=== PATIENT | female | born 1940 | race Caucasian/White ===

== ENCOUNTER 2019-01-20 14:08 | Inpatient (IN) | payer OTHER, SELFPAY ==
[2019-01-20] VITALS (19 sets, daily range): BP systolic 117–160; BP diastolic 47–113; PULSE 99–157; RESP 17–26; TEMP 36.4–36.9; O2SAT 94–98; BMI 31.7; BMI 34.4
--- NOTE | 2019-01-20 | DI.ECHO.S_ITS ---
[facility] +---------+ : : [address] : : : : [id number] : : : : Phone: [phone] Echocardiogram Report + + :Name: CRISTOPHER BOB Study Date: 01/21/2019 Height: 64 in : :[facility] Exam Location: [facility] Weight: 185 lb : : Gender: Female BSA: 1.9 m2 : :: 1940 Age: 78 yrs BP: 107/61 mmHg: :Reason For Study: New A- fib : :Ordering Physician: Mallorie : :Hospitalist Performed By: Dafne Page : :Referring: Landon MORRISSEY E : + + Interpretation Summary The patient was in atrial fibrillation with heart rates between 71-100 bpm during the exam. Borderline dilated left ventricle with ejection fraction 40-45%. Hypokinesis of inferior wall and lateral wall. Severely dilated left atrium. Mild to moderately dilated right atrium. Moderate mitral regurgitation. The right ventricular systolic pressure is estimated to be at least 36 mmHg based on an estimated right atrial pressure of 15 mm Hg. There is a moderate left-sided pleural effusion. Procedure: A two-dimensional transthoracic echocardiogram with color flow and Doppler was performed. The study quality was technically adequate. There is no prior echocardiogram noted for this patient. The subcostal views were difficult to obtain and are suboptimal in quality. The patient was in atrial fibrillation with heart rates between 71-100 bpm during the exam. Left Ventricle: The left ventricle is borderline dilated. There is normal left ventricular wall thickness. The ejection fraction is estimated to be 40- 45%. There is inferior wall hypokinesis. Diastolic function could not be accurately assessed due to atrial fibrillation. Right Ventricle: The right ventricle is normal in size and function. Atria: The left atrium is severely dilated. The right atrium is mild to moderately dilated. There is no Doppler evidence for an interatrial shunt. Mitral Valve: The mitral valve leaflets appear mildly thickened, but open well. There is moderate mitral regurgitation. Aortic Valve: The aortic valve is trileaflet. The aortic valve opens well. The aortic valve is slightly calcified. There is mild aortic valve sclerosis. No aortic regurgitation is present. Tricuspid Valve: The tricuspid valve is normal in structure and function. There is trace tricuspid regurgitation. The right ventricular systolic pressure is estimated to be at least 36 mmHg based on an estimated right atrial pressure of 15 mm Hg. Pulmonic Valve: The pulmonic valve is not well visualized. There is trace pulmonic regurgitation. Great Vessels: The aortic root is normal size. The ascending aorta is normal in size. The aortic arch is normal in size. The pulmonary artery is not well visualized, but is probably normal size. The IVC is dilated (diameter is greater than 2.1 cm) and it collapses less than 50% with a sniff. This suggests a high right atrial pressure of 15 mm Hg. Pericardium/ Pleura There is no pericardial effusion. There is a moderate left-sided pleural effusion. MMode/2D Measurements & Calculations LVIDd: 5.4 cm Ao root diam: 2.8 cm LVIDs: 5.1 cm asc Aorta Diam: 3.0 cm FS: 6.6 % Ao Arch Diam (Prox Trans): 2.5 cm EPSS: 1.2 cm IVSd: 0.60 cm LVPWd: 1.0 cm LV judd. diameter/BSA (cm/m^2): 2.9 LV sys. diameter/BSA (cm/m^2): 2.7 LA A2 area: 29.5 cm2 RA long axis: 5.2 cm LA A4 area: 27.1 cm2 RA area: 21.3 cm2 LA length (vol): 6.6 cm RA vol: 74.4 ml LA vol: 102.8 ml RA : 39.3 ml/m2 LA vol index: 54.3 ml/m2 IVC diam: 2.5 cm RVD1 (basal): 3.7 cm TAPSE: 1.7 cm Doppler Measurements & Calculations Ao V2 max: 115.2 cm/sec LVOT Max Gino: 59.2 cm/sec Ao V2 mean: 84.6 cm/sec LV V1 max P.4 mmHg Ao max P.3 mmHg LV V1 VTI: 9.6 cm Ao mean P.1 mmHg sev ratio: 0.48 Ao V2 VTI: 20.1 cm MV E max gino: 80.1 cm/sec TR max gino: 228.5 cm/sec Med Peak E' Gino: 5.7 cm/sec TR max P.9 mmHg E/E' med: 14.0 PA V2 max: 61.9 cm/sec Lat Peak E' Gino: 6.9 cm/sec PA V2 mean: 42.5 cm/sec E/E' lat: 11.6 PA mean P.81 mmHg E/e' average: 12.8 PA Accel Time: 0.08 sec MV P1/2t: 46.9 msec MV P1/2t max gino: 81.0 cm/sec MVA(2t): 4.7 cm2 Electronically signed by: Malachi Santos on Reading Physician:01/21/2019 02:11 PM
--- NOTE | 2019-01-20 14:30 | DI.RAD.S_ITS ---
PROCEDURE: XR CHEST 1V INDICATIONS: chest pain TECHNIQUE: One view of the chest was acquired. COMPARISON: None. FINDINGS: Surgical changes and devices: None. Lungs and pleura: Diffuse bilateral reticular opacities are noted. There are left basilar pulmonary opacities. There is blunting of the left costophrenic angle consistent with a small left pleural effusion. There is prominence of the pulmonary vasculature bilaterally. Mediastinum: Mediastinal contours appear normal. Heart size is normal. Bones and chest wall: Mild degenerative changes of the bilateral chromic clavicular joint is noted. IMPRESSION: Findings most consistent with mild pulmonary edema with a small left pleural effusion and adjacent left basilar atelectasis; underlying left basilar pneumonia could appear similar. Dictated by: Shin Nova M.D. on 01/20/2019 at 16:59 Approved by: Shin Nova M.D. on 01/20/2019 at 17:00
[2019-01-20 14:39] LABS: Add Manual Diff / Slide Review NO; Basophils Absolute Auto 0 /uL (0-100); Basophils Percent Auto 0.6 % (0-2); Eosinophils Absolute Auto 100 /uL (0-450); Eosinophils Percent Auto 0.7 % (2-4); Hemoglobin 13.5 g/dL (12.0-16.0); Lymphocytes Absolute Auto 1500 /uL (1100-4500); Lymphocytes Percent Auto 18.9 % (25-40); Mean Corpuscular HGB Conc 32.9 % (30-36); Mean Corpuscular Hemoglobin 34.1 PG (26-34); Mean Corpuscular Volume 103.7 fL (80-100); Monocytes Absolute Auto 600 /uL (0-900); Monocytes Percent Auto 8.2 % (3-14); Neutrophils Absolute Auto 5600 /uL (1500-7000); Neutrophils Percent Auto 71.6 % (50-75); Platelet Count 276 X10^3/uL (150-400); Red Blood Cell Count 3.96 X10^6/uL (4.0-5.2); Red Cell Distribution Width 13.3 % (11.6-14.8); White Blood Cell Count 7.8 X10^3/uL (4.5-11.0)
[2019-01-20] MEDS: dilTIAZem 5 MG/ML SDV 10 MG IV (14:42)
[2019-01-20 14:45] LABS: Alanine Aminotransferase 46 IU/L (9-52); Albumin 4.5 g/dL (3.5-5.0); Albumin Globulin Ratio 1.5 (1.0-2.8); Alkaline Phosphatase 73 U/L (38-126); Aspartate Aminotransferase 33 IU/L (14-36); Bilirubin Total 0.6 mg/dL (0.2-1.3); Blood Urea Nitrogen 20 mg/dL (7-17); Calcium 9.5 mg/dL (8.4-10.2); Carbon Dioxide 21 mmol/L (22-32); Chloride 109 mmol/L (98-107); Creatine Kinase 95 U/L (30-135); Estimated Glomerular Filt Rate > 60.0 mL/min (>60); Glucose 106 mg/dL (80-110); HEMOLYSIS 31 (0-50); Lipase 46 U/L (23-300); Potassium 4.3 mmol/L (3.4-5.1); Sodium 141 mmol/L (137-145); Total Protein 7.5 g/dL (6.3-8.2)
[2019-01-20] MEDS: dilTIAZem 125 MG in DEXTROSE 5 % IN WATER 100 ML IV (14:49)
[2019-01-20 14:57] LABS: Troponin I 0.031 ng/mL (0.01-0.034)
[2019-01-20 15:02] LABS: INR 1.1 (0.9-1.3); Prothrombin Time 13.2 SECONDS (10.1-12.7)
[2019-01-20 15:05] LABS: PTT Partial Thromboplastin Tim 26 SECONDS (26.4-36.2)
[2019-01-20 15:05] LABS: B Type Natriuretic Peptide 272 (<100)
[2019-01-20] MEDS: ENOXAPARIN 40 MG/0.4 ML SYRINGE SUBCUT (15:10)
--- NOTE | 2019-01-20 15:11 | ED_ITS ---
HPI - SOB/Dyspnea General Chief Complaint: Shortness of Breath/Dyspnea Stated Complaint: short of breath Time Seen by Provider: 01/20/19 14:10 Source: patient and family Mode of arrival: ambulatory Limitations: no limitations History of Present Illness 78-year-old female nonsmoker with history of AFib (use no anticoagulation) presents with 5 days progressive shortness of breath and weakness. She denies any chest pain or palpitations. She denies any new or missed medications. She denies any dietary change. She has never had any EKGs done locally. She denies any cough nor fever or chills MD Complaint: shortness of breath Onset (ago): day(s) Severity: moderate Consistency/Duration: constant Relieving factors: rest Exacerbating factors: nothing Treatment prior to arrival: none Related Data Home Medications Medication Instructions Recorded Confirmed No Known Home Medications 01/20/19 01/20/19 Allergies Allergy/AdvReac Type Severity Reaction Status Date / Time No Known Drug Allergies Allergy Verified 01/20/19 15:05 Review of Systems Constitutional Denies chills, Denies fever(s), Denies lethargy and Denies weakness Eyes Denies change in vision, Denies eye discharge, Denies irritation and Denies loss of vision ENT Ears, Nose, Mouth, and Throat: Denies change in voice, Denies neck pain and Denies sore throat Cardiovascular Denies chest pain, Denies irregular heart rhythm, Denies lightheadedness, Denies palpitations, Reports dyspnea, Reports dyspnea on exertion and Denies orthopnea Respiratory Denies cough, Reports dyspnea, Reports dyspnea on exertion and Denies wheezing Gastrointestinal Gastrointestinal: Denies abdominal pain, Denies change in bowel habits, Denies diarrhea, Denies nausea and Denies vomiting Genitourinary Denies hematuria, Denies flank pain, Denies urinary incontinence and Denies urinary urgency Musculoskeletal Denies neck pain Integumentary/Breasts Denies pruritus, Denies erythema, Denies rash and Denies wounds Neurologic Denies confusion, Denies loss of vision and Denies weakness Psychiatric Denies anxiety, Denies confusion, Denies depression, Denies homicidal ideation and Denies suicidal ideation Endocrine Denies palpitations Hematologic/Lymphatic Denies easy bruising Allergic/Immunologic Denies wheezing [facility] Medical History (Updated 01/20/19 @ 15:14 by Mario Cerna DO) Atrial fibrillation (Acute) Social History Smoking Status: Never smoker Social History Smoking Status: Never smoker Exam Narrative Exam Narrative: GENERAL: Very pleasant 78-year-old female appears younger than stated age and in mild distress HEAD: Atraumatic. Normocephalic. No temporal or scalp tenderness. EYES: Pupils equal round and reactive. Extraocular motions intact. No scleral icterus. No injection or drainage. ENT: Nose without bleeding, purulent drainage or septal hematoma. Throat without erythema, tonsillar hypertrophy or exudate. Uvula midline. Airway patent. NECK: Trachea midline. No JVD or lymphadenopathy. Supple, nontender, no meningeal signs. CARDIOVASCULAR: Tachycardic and irregular rhythm without murmurs, gallops, or rubs. RESPIRATORY: Clear to auscultation. Breath sounds equal bilaterally. No wheezes, rales, or rhonchi. GASTROINTESTINAL: Abdomen soft, non-tender, nondistended. No hepato- splenomegaly, or palpable masses. No guarding. EXTREMITIES: No clubbing, cyanosis, or edema. No joint tenderness, effusion, or edema noted. BACK: Nontender without deformity or crepitance. No flank tenderness. NEURO: AOx3. SKIN: No rash or erythema. Initial Vital Signs Initial Vital Signs: Vital Signs Temperature 98.5 F 01/20/19 14:20 Pulse Rate 146 H 01/20/19 14:20 Respiratory Rate 24 01/20/19 14:20 Blood Pressure 153/90 H 01/20/19 14:20 Pulse Oximetry 96 01/20/19 14:20 Course Orders Ordered: ED Orders 01/20/19 14:15 EKG-12 Lead Routine 01/20/19 14:26 BNP [B Type Natriuretic Peptide] Stat Complete Blood Count AUTO DIFF Stat Comprehensive Metabolic Panel Stat Lipase Stat Magnesium Stat Troponin & CK Cardiac Panel Stat 01/20/19 14:30 XR chest 1V Stat 01/20/19 14:50 Partial Thromboplastin Time Stat Prothrombin Time INR Stat Diltiazem HCl 125 mg/ Dextrose 125 mls @ 5 mls/hr IV TITRATE ROSALINA; Protocol Last Admin: 01/20/19 14:49 Dose: 5 mg/hr, 5 mls/hr Discontinued Medications Diltiazem HCl (Cardizem) 10 mg IV NOW ONE Stop: 01/20/19 14:32 Last Admin: 01/20/19 14:42 Dose: 10 mg Enoxaparin Sodium (Lovenox) 40 mg SUBCUT NOW ONE Stop: 01/20/19 15:05 Reevaluation(s) Reevaluation #1: patient has brief improvement after diltiazem push and more gradual improvement after drip Consultations Consultation #1: discussion with hospitalist, happy to accept Vital Signs - 8 hr 01/20/19 14:20 01/20/19 14:42 01/20/19 14:43 Temperature 98.5 F Pulse Rate 146 H 157 H 127 H Respiratory Rate 24 21 Blood Pressure 153/90 H 142/113 H Blood Pressure [Right Arm] 137/90 Pulse Oximetry 96 97 01/20/19 14:49 01/20/19 14:54 01/20/19 15:05 Temperature Pulse Rate 122 H 115 H 99 H Respiratory Rate 17 24 Blood Pressure 154/110 H Blood Pressure [Right Arm] 154/100 H 126/85 Pulse Oximetry 94 95 MDM - SOB/Dyspnea Lab Data Result diagrams: 01/20/19 14:26 01/20/19 14:26 Lab Results 01/20/19 01/20/19 01/20/19 Range/Units 14:26 14:26 14:50 WBC 7.8 (4.5-11.0) X10^3/uL RBC 3.96 L (4.0-5.2) X10^6/uL Hgb 13.5 (12.0-16.0) g/dL Hct 41.0 (36-46) % MCV 103.7 H (80-100) fL MCH 34.1 H (26-34) PG MCHC 32.9 (30-36) % RDW 13.3 (11.6-14.8) % Plt Count 276 (150-400) X10^3/uL Neut % (Auto) 71.6 (50-75) % Lymph % (Auto) 18.9 L (25-40) % Lee % (Auto) 8.2 (3-14) % Eos % (Auto) 0.7 L (2-4) % Baso % (Auto) 0.6 (0-2) % Neut # (Auto) 5600 (7022-1114) /uL Lymph # (Auto) 1500 (5130-8168) /uL Lee # (Auto) 600 (0-900) /uL Eos # (Auto) 100 (0-450) /uL Baso # (Auto) 0 (0-100) /uL PT 13.2 H (10.1-12.7) SECONDS INR 1.1 (0.9-1.3) APTT 26 L (26.4-36.2) SECONDS Sodium 141 (137-145) mmol/L Potassium 4.3 (3.4-5.1) mmol/L Chloride 109 H (98-107) mmol/L Carbon Dioxide 21 L (22-32) mmol/L BUN 20 H (7-17) mg/dL Creatinine 0.80 (0.52-1.04) mg/dL Estimated GFR > 60.0 (>60) mL/min BUN/Creatinine Ratio 25.0 H (6-22) Glucose 106 (80-110) mg/dL Calcium 9.5 (8.4-10.2) mg/dL Magnesium 2.0 (1.6-2.3) mg/dL Total Bilirubin 0.6 (0.2-1.3) mg/dL AST 33 (14-36) IU/L ALT 46 (9-52) IU/L Alkaline Phosphatase 73 (38-126) U/L Total Creatine Kinase 95 (30-135) U/L CK-MB (CK-2) TNP CK-MB (CK-2) Rel Index TNP Troponin I 0.031 (0.01-0.034) ng/mL B-Natriuretic Peptide 272 H (<100) Total Protein 7.5 (6.3-8.2) g/dL Albumin 4.5 (3.5-5.0) g/dL Globulin 3.0 (1.7-4.1) g/dL Albumin/Globulin Ratio 1.5 (1.0-2.8) Lipase 46 (23-300) U/L ECG Data Attestation: I personally reviewed and interpreted this ECG as follows: Prior ECG tracings: not available for review Interpretation: Rapid AFib, in the upper 140s without ischemia MDM Narrative Medical decision making narrative: symptomatic rapid atrial fib, no clear time of onset though it would seem reasonable to suspect it's been about 5 days. Furthermore she is not anticoagulated and is therefore not a candidate for cardioversion in the emergency department Discharge Plan Departure Patient Disposition: Admitted As Inpatient Clinical Impression: Atrial fibrillation with rapid ventricular response
--- NOTE | 2019-01-20 16:35 | P.HP_ITS ---
History of Present Illness Date Patient Seen: 01/20/19 Time Patient Seen: 16:29 Chief complaint: short of breath Narrative: This is a 78-year-old female who has had intermittent palpitations for the last 20 years. She insists that she has told her physician about them and that no testing or treatment was ever recommended. She admits that she has had hypertension but it has been ?controlled by diet and exercise. For the last week the palpitations have become more intense. They usually improve as the day goes on. Today was different because her sister and her niece were picking her up to drive up to visit her brother on [facility]. 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 On arrival she is found to have atrial fibrillation with rapid ventricular response up into the 168 range. Her chest x-ray appears to show mild pulmonary edema with significant cardiomegaly. She is on a Cardizem drip now with a heart rate back down into the 120s. Thyroid testing and echocardiogram will be needed. She has been started on anticoagulation. She drinks 3 glasses of wine per night and has done that for many years. She insists that she has never had withdrawal symptoms when needing to stop drinking for what ever reason. Her medical history is quite abbreviated. She only takes ibuprofen and only intermittently. She lives alone in her house in [place]. Dr. Alicia Duarte is her primary care physician on [address]. Patient History Medical History (Updated 01/20/19 @ 16:21 by Landon Morrow MD) Alcohol use (Acute) Essential hypertension (Acute) Atrial fibrillation (Acute) Surgical History (Updated 01/20/19 @ 16:23 by Landon Morrow MD) H/O umbilical hernia repair (Acute) History of knee replacement procedure of right knee (Acute) Family History (Updated 01/20/19 @ 16:24 by Landon Morrow MD) Father Cancer Mother Hip fracture Social History Smoking Status: Never smoker Family & Social History Family History (Updated 01/20/19 @ 16:24 by Landon Morrow MD) Father Cancer Mother Hip fracture Safety & Behavioral: Feels Safe in Current Yes Environment Tobacco & Substance use: Smoking Status Never smoker alcohol intake frequency 3 or more drinks per day Substance Use Type does not use Comment: She lives alone, with a cat, in her house, for the last [address] [place]. Alicia Duarte is her primary care physician at [facility] on [address]. She has not been there for 3 years. She drinks 3 glasses of wine per night and is distinctly irritable when that is discussed. She insists that she has never had withdrawal symptoms and is able to stop drinking for any period of time without trouble. No smoking, no THC, no drugs. She has 2 adult children and her son will be coming up to get her when she discharges. She worked only briefly, in the [employer] business. Meds Home Medications Medication Instructions Recorded Confirmed Type No Known Home Medications 01/20/19 01/20/19 History Allergies Allergy/AdvReac Type Severity Reaction Status Date / Time No Known Drug Allergies Allergy Verified 01/20/19 15:05 Review of Systems Review of Systems Positive for palpitations and dyspnea with exertion. Negative for bleeding, rashes, chest pain, shortness of breath at rest, coughing, fevers, chills, sweats, abdominal pain, vomiting, diarrhea, dysuria, joint pain, rash, seizures, headaches, trouble talking, trouble walking, new allergies. All systems reviewed & are unremarkable except as noted in HPI and below Exam Vital Signs (past 8 hours): - 01/20/19 14:20 01/20/19 14:42 01/20/19 14:43 Temperature 98.5 F Pulse Rate 146 H 157 H 127 H Respiratory Rate 24 21 Blood Pressure 153/90 H 142/113 H Blood Pressure [Right Arm] 137/90 Pulse Oximetry 96 97 01/20/19 14:49 01/20/19 14:54 01/20/19 15:05 Temperature Pulse Rate 122 H 115 H 99 H Respiratory Rate 17 24 Blood Pressure 154/110 H Blood Pressure [Right Arm] 154/100 H 126/85 Pulse Oximetry 94 95 01/20/19 15:30 01/20/19 15:54 01/20/19 16:00 Temperature Pulse Rate 102 H 102 H 122 H Respiratory Rate 18 25 H 26 H Blood Pressure Blood Pressure [Right Arm] 123/48 L 143/96 H 154/54 H Pulse Oximetry 98 94 94 Oxygen Delivery Method Room Air Oxygen Flow Rate 2 Narrative Exam Narrative: She is alert and oriented x3. Extraocular muscles are intact. Sclerae are pink and nonicteric. Pupils are equally round and reactive to light and accommodation. Throat looks normal. JVD is less than 6 cm. No carotid bruits are heard. No lymph nodes are felt head, neck, supraclavicular area. There is no thyromegaly. Heart is irregularly tachycardic without murmur. Lungs are clear to auscultation bilaterally. Abdomen is obese, bowel sounds positive, nontender, no organomegaly. Extremities have trace bilateral pitting ankle edema. Neuro exam. Cranial nerves 2-12 tested intact. there is no tremor. There is no lateralizing deficit. Gait and balance were not tested. Skin has no rash, jaundice, visible lesions. Objective Labs Result Diagrams: 01/20/19 14:26 01/20/19 14:26 Labs: Laboratory Results - last 24 hr 01/20/19 01/20/19 01/20/19 14:26 14:26 14:50 WBC 7.8 RBC 3.96 L Hgb 13.5 Hct 41.0 MCV 103.7 H MCH 34.1 H MCHC 32.9 RDW 13.3 Plt Count 276 Neut % (Auto) 71.6 Lymph % (Auto) 18.9 L Roane % (Auto) 8.2 Eos % (Auto) 0.7 L Baso % (Auto) 0.6 Neut # (Auto) 5600 Lymph # (Auto) 1500 Roane # (Auto) 600 Eos # (Auto) 100 Baso # (Auto) 0 PT 13.2 H INR 1.1 APTT 26 L Sodium 141 Potassium 4.3 Chloride 109 H Carbon Dioxide 21 L BUN 20 H Creatinine 0.80 Estimated GFR > 60.0 BUN/Creatinine Ratio 25.0 H Glucose 106 Calcium 9.5 Magnesium 2.0 Total Bilirubin 0.6 AST 33 ALT 46 Alkaline Phosphatase 73 Total Creatine Kinase 95 CK-MB (CK-2) TNP CK-MB (CK-2) Rel Index TNP Troponin I 0.031 B-Natriuretic Peptide 272 H Total Protein 7.5 Albumin 4.5 Globulin 3.0 Albumin/Globulin Ratio 1.5 Lipase 46 Assessment & Plan Assessment & Plan narrative: Atrial Fibrillation, Likely Chronic -Rapid Ventricular Response with HR of 168 on presentation -echocardiogram pending for tomorrow -TSH ordered tonight -begin on Eliquis. -continue diltiazem ip and add oral metoprolol in the morning -observe on telemetry -discuss that she will likely need rate control and anticoagulation medicines with further follow-up with Cardiology and primary care in [place] at discharge. Hypertension Essential, Chronic -Begin Metoprolol Congestive Heart Failure -based on elevated BNP and CXR appearance -echocardiogram pending -begin on Lasix and metoprolol. -trend Troponins Daily Alcohol Use/Macrocytosis -Watch for withdrawal symptoms. She is full code Disposition is back home to [place] after workup and rate control/symptom control established.
[2019-01-20 17:04] LABS: TSH w/ Reflex to FT4 2.94 uIU/mL (0.47-4.68)
--- NOTE | 2019-01-20 17:37 | PC.NURSE ---
Addendum entered by Vita Enriquez R.N. 01/20/19 20:45: 2015 - Pt awake and alert. Denies chest pain. Continues to report mild SOB. Reports feeling heaviness to her breathing. 98% on 2L titrated down to 1L. Hr continues to be consistently 110 at rest. Titrated cardizem gtt up to 7.5mg/hr. Monitor. Educated to a-fib and eliquis. Snack provided with HS meds. Call light in reach. Original Note: 1645 - Pt to room from ER. Able to stand and transfer to bed. Denies lightheadedness, denies chest pain. Cardizem gtt @ 5mg/hr. HR 110's at rest, increasing to the 130's with activity. Mild SOB, O2 @ 2L, 98%, No cough. Oriented to room, routine and treatment plan. Call light in reach.
[2019-01-20] MEDS: APIXABAN 5 MG TABLET PO (20:21)
[2019-01-21] VITALS (20 sets, daily range): BP systolic 107–144; BP diastolic 61–87; PULSE 76–108; RESP 14–29; TEMP 36.4–36.8; O2SAT 89–96
--- NOTE | 2019-01-21 06:50 | PC.NURSE ---
Diltiazem tapered to 2.5mg/hr holding HR in 70's to 80's with stable BP. With activity as in bsc would go to 130 and return to 80's when back to bed.
[2019-01-21] MEDS: METOPROLOL ER 50 MG TABLET PO (08:07)
[2019-01-21] MEDS: FUROSEMIDE 20 MG TABLET PO (08:07)
[2019-01-21] MEDS: APIXABAN 5 MG TABLET PO ×2 (08:07→21:15)
--- NOTE | 2019-01-21 08:28 | CM.DANOTE ---
DCP: Case received, EMR reviewed and met with patient. Introduced self and role. DCP template completed with information currently available. Patient is a 78 year old female who admitted yesterday afternoon to the care of the hospitalist team. PCP: Dr. Alicia Duarte, in [place]. Payer: confirmed: Medicare/[employer]. Patient came to hospital with symptoms of palpitations. She came via family vehicle. She holds diagnosis of A-Fib/with Ventricular Response. She is currently on a Diltizem drip in the ICU. Met with patient. Alert and oriented, was sitting on edge of bed. She lives in [place] alone, and has a son in [place]. He will be up here to pick her up when she discharges. She was visiting sister on [facility], when she started having these symptoms. She is independent at baseline. P: DCP to continue to follow. Should be able to go home when she is medically stable. Caren Blood RN/Ip Paralegal
[2019-01-21] MEDS: dilTIAZem 125 MG in DEXTROSE 5 % IN WATER 100 ML 10 ML IV (09:19)
[2019-01-21 09:25] LABS: Troponin I 0.044 ng/mL (0.01-0.034)
--- NOTE | 2019-01-21 11:09 | PM.PN.1 ---
Subjective Date Patient Seen: 01/21/19 Interval history: Ro is a 78-year-old female with a past medical history significant for hypertension and chronic alcohol use who presented for palpitations and was found to be in atrial fibrillation with RVR. The patient is resting in bedside chair comfortably. She denies current palpitations. She continues to be on diltiazem gtt and have started metoprolol tartrate and will titrate off as tolerated. She has been up to toilet and back without significant dyspnea on exertion. Overall she has no complaints and denies headache, shortness of breath, chest pain, abdominal pain, nausea, vomiting, fever, chills, dysuria, diarrhea or constipation. She is voiding and eliminating without difficulty. She is up ambulating without assistance. Exam Vital Signs (past 8 hours): - 01/21/19 04:02 01/21/19 05:08 01/21/19 06:25 Temperature 97.6 F Pulse Rate 81 78 96 H Respiratory Rate 18 14 20 Blood Pressure 127/82 142/74 H 132/73 Pulse Oximetry 94 96 92 01/21/19 08:00 Temperature 97.6 F Pulse Rate 108 H Respiratory Rate 23 Blood Pressure 138/70 Pulse Oximetry 92 Oxygen Delivery Method Room Air Oxygen Flow Rate 0 Narrative Exam Narrative: General: Elderly female sitting in bedside chair and in no acute distress, well-developed, well-nourished, appropriately interactive. HEENT: Normocephalic, atraumatic. External ears without defect. Pupils equal, round, and reactive to light. Anicteric sclerae, moist conjunctivae, and no lid lag. Neck: Supple with full range of motion. No jugular venous distension. No bruits. No lymphadenopathy or thyromegaly. Cardiovascular: Irregularly irregular without murmurs, rubs, or gallops appreciated. Pulmonary: Clear to auscultation bilaterally without crackles, wheezes, or rhonchi. Normal respiratory effort with no use of accessory muscles. Abdomen: Soft, bowel sounds present, nontender, nondistended. No hepatosplenomegaly or masses appreciated. Extremities: No clubbing, cyanosis, or edema. Skin: Normal temperature, turgor, and texture; no rash, ulcers, or subcutaneous nodules appreciated. Neurological: Cranial nerves grossly intact. Normal muscle strength, tone, and bulk. Reflexes, coordination, and sensory function within normal limits. No known gait impairment. Psychiatric: Normal mood and affect. Alert and oriented to person, place, and time. Objective Labs Result Diagrams: 01/20/19 14:26 01/20/19 14:26 Labs: Laboratory Results - last 24 hr 01/20/19 01/20/19 01/20/19 14:20 14:26 14:26 WBC 7.8 RBC 3.96 L Hgb 13.5 Hct 41.0 MCV 103.7 H MCH 34.1 H MCHC 32.9 RDW 13.3 Plt Count 276 Neut % (Auto) 71.6 Lymph % (Auto) 18.9 L [place] % (Auto) 8.2 Eos % (Auto) 0.7 L Baso % (Auto) 0.6 Neut # (Auto) 5600 Lymph # (Auto) 1500 [place] # (Auto) 600 Eos # (Auto) 100 Baso # (Auto) 0 PT INR APTT Sodium 141 Potassium 4.3 Chloride 109 H Carbon Dioxide 21 L BUN 20 H Creatinine 0.80 Estimated GFR > 60.0 BUN/Creatinine Ratio 25.0 H Glucose 106 Calcium 9.5 Magnesium 2.0 Total Bilirubin 0.6 AST 33 ALT 46 Alkaline Phosphatase 73 Total Creatine Kinase 95 CK-MB (CK-2) TNP CK-MB (CK-2) Rel Index TNP Troponin I 0.031 B-Natriuretic Peptide 272 H Total Protein 7.5 Albumin 4.5 Globulin 3.0 Albumin/Globulin Ratio 1.5 Lipase 46 TSH 2.94 Nasal Screen MRSA (PCR) 01/20/19 01/20/19 01/21/19 14:50 17:00 08:45 WBC RBC Hgb Hct MCV MCH MCHC RDW Plt Count Neut % (Auto) Lymph % (Auto) [place] % (Auto) Eos % (Auto) Baso % (Auto) Neut # (Auto) Lymph # (Auto) [place] # (Auto) Eos # (Auto) Baso # (Auto) PT 13.2 H INR 1.1 APTT 26 L Sodium Potassium Chloride Carbon Dioxide BUN Creatinine Estimated GFR BUN/Creatinine Ratio Glucose Calcium Magnesium Total Bilirubin AST ALT Alkaline Phosphatase Total Creatine Kinase CK-MB (CK-2) CK-MB (CK-2) Rel Index Troponin I 0.044 H B-Natriuretic Peptide Total Protein Albumin Globulin Albumin/Globulin Ratio Lipase TSH Nasal Screen MRSA (PCR) Negative for mrsa Assessment & Plan Assessment & Plan narrative: Ro is a 78-year-old female with a past medical history significant for hypertension and chronic alcohol use who presented for palpitations and was found to be in atrial fibrillation with RVR. 1. Atrial fibrillation with RVR, likely chronic, present on admission. Active. -Patient presented with palpitations and dyspnea on exertion and found to be in atrial fibrillation with RVR, heart rate 160s. -TSH normal at 2.94. -Started Eliquis 5 mg twice daily for stroke prophylaxis. -Ordered echocardiogram, pending. -Continue to monitor closely on telemetry. -Patient was started on diltiazem drip with heart rate controlled currently. Started metoprolol tartrate 50 mg every 6 hours and will titrate off diltiazem as tolerated. -Patient will need follow-up with Cardiology and primary care in [place] at discharge. 2. Probable new onset congestive heart failure, secondary to atrial fibrillation with RVR, present on admission. Resolving. -Likely new onset CHF versus dyspnea on exertion from mild pulmonary edema due to atrial fibrillation with RVR. -BNP elevated 272 and chest x-ray interpreted by me demonstrated mild bilateral pulmonary edema and vascular congestion. -Ordered echocardiogram, pending. -Continue Lasix 20 mg daily and metoprolol tartrate as above. -Initial troponin normal at 0.033. Repeat mildly elevated 0.044. Will repeat and trend if continuing to rise. 3. Hypertension, chronic, present on admission. Stable. -Ordered metoprolol tartrate 50 mg every 6 hours as above. 4. Alcohol use with macrocytosis, chronic, present on admission. Stable. -Patient drinks 3 glasses of wine a night. No history of withdrawal. -Discussed alcohol use and recommended cutting back. -Ordered B12 and folate level, pending. -Will watch for withdrawal symptoms. Disposition: Patient likely to discharge in 1-2 days depending upon rate control. Quality VTE Deep Vein Thrombosis/Pulmonary Embolism Present on Admission: No
[2019-01-21] MEDS: METOPROLOL IR 50 MG TABLET PO ×3 (12:28→23:37)
[2019-01-21 15:29] LABS: BUN Creatinine Ratio 22.2 (6-22); Blood Urea Nitrogen 20 mg/dL (7-17); Calcium 9.1 mg/dL (8.4-10.2); Carbon Dioxide 24 mmol/L (22-32); Chloride 106 mmol/L (98-107); Estimated Glomerular Filt Rate > 60.0 mL/min (>60); Glucose 124 mg/dL (80-110); HEMOLYSIS < 15 (0-50); Magnesium 1.9 mg/dL (1.6-2.3); Potassium 4.2 mmol/L (3.4-5.1); Sodium 139 mmol/L (137-145)
[2019-01-21 17:02] LABS: Folate > 20.0 ng/mL (2.76-20.0); Vitamin B12 > 1000 pg/mL (239-931)
--- NOTE | 2019-01-21 21:06 | PC.NURSE ---
Evening Shift Note: Pt received laying in bed, on RA, SPO2 at rest 90-93%. Lungs clear in upper lobes, mild crackles in posterior bases. Pt denies SOB at rest, no CP/pressure. Reports pain in R shoulder, relieved with positioning. Pt in a-fib CVR, HR 80s. Pt OOB to ambulate, HR up to low 100s, pt was able to ambulate 100 ft before complaining of weakness and inability to walk any farther. Pt's SpO2 down to 87% at that time. Pt sat up in chair, then requested back to bed. Pt helped back to bed, SPO2 remained at 89%, pt placed on 2 L NC at that time. Pt's lungs auscultated at that time, clear in all calvin. Pt with low uop this shift, 125 ml since 1130 am. Bladder scanned with no residual. SHEET METAL ROOFER aware that pt has low uop, requested to be called if oxygen needs are increasing or pt is otherwise symptomatic. Will continue to monitor, notify MD with changes.
[2019-01-21] MEDS: FUROSEMIDE 40 MG/4 ML VIAL IV (22:22)
[2019-01-22] VITALS (15 sets, daily range): BP systolic 111–153; BP diastolic 69–94; PULSE 85–106; RESP 18–23; TEMP 36.4–36.6; O2SAT 87–94
[2019-01-22] MEDS: METOPROLOL IR 50 MG TABLET PO (06:14)
--- NOTE | 2019-01-22 06:37 | PC.NURSE ---
NOC Shift: Pt continues to be in Afib CVR at rest, RVR w/activity HR up to 120's. Also continues to have SOB w/activity, fine crackles posterior bases despite IV Lasix and good UO. VSS. NPO after 2400 for stress test this AM. Denies pain other than generalized mobility pain when up secondary to old knee replacements. Pt states she uses FWW at home for mobility. Given one at bedside. Remains ICU status.
--- NOTE | 2019-01-22 07:30 | P.PN_ITS ---
Subjective Date Patient Seen: 01/22/19 Interval history: Ro is a 78-year-old female with a past medical history significant for hypertension and chronic alcohol use who presented for palpitations and was fo und to be in atrial fibrillation with RVR. Interval history: Patient had decreased urinary output and desatted to 89% on room air yesterday evening and was additionally diuresed with Lasix 40 mg IV x1. The patient is resting in bedside chair comfortably. She is schedule for nuclear medicine stress test today. Her rate is controlled on metoprolol succinate 200 mg daily. She continues to has dyspnea on exertion but reports that her shortness of breath is mildly improved. She denies current palpitations. Overall she has no complaints and denies headache, shortness of breath, chest pain, abdominal pain, nausea, vomiting, fever, chills, dysuria, diarrhea or constipation. She is voiding and eliminating without difficulty. She is up ambulating without assistance. Exam Vital Signs (past 8 hours): - 01/21/19 23:53 01/22/19 00:00 01/22/19 04:10 Temperature 97.6 F 97.6 F Pulse Rate 101 H 98 H Respiratory Rate 22 23 Blood Pressure 137/72 153/94 H Pulse Oximetry 91 93 94 01/22/19 06:17 01/22/19 06:18 Temperature Pulse Rate 88 Respiratory Rate 23 Blood Pressure 151/71 H Pulse Oximetry 91 91 Oxygen Delivery Method Nasal Cannula Oxygen Flow Rate 1 Narrative Exam Narrative: General: Elderly female sitting in bedside chair and in no acute distress, we ll-developed, well-nourished, appropriately interactive. HEENT: Normocephalic, atraumatic. External ears without defect. Pupils equal, round, and reactive to light. Anicteric sclerae, moist conjunctivae, and no lid lag. Neck: Supple with full range of motion. No jugular venous distension. No bruits. No lymphadenopathy or thyromegaly. Cardiovascular: Irregularly irregular without murmurs, rubs, or gallops appreciated. Pulmonary: Clear to auscultation bilaterally without crackles, wheezes, or rhonchi. Normal respiratory effort with no use of accessory muscles. Abdomen: Soft, bowel sounds present, nontender, nondistended. No hepatosplenomegaly or masses appreciated. Extremities: No clubbing, cyanosis, or edema. Skin: Normal temperature, turgor, and texture; no rash, ulcers, or subcutaneous nodules appreciated. Neurological: Cranial nerves grossly intact. Psychiatric: Normal mood and affect. Alert and oriented to person, place, and time. Objective Labs Result Diagrams: 01/22/19 07:50 01/22/19 07:50 Labs: Laboratory Results - last 24 hr 01/21/19 01/21/19 01/21/19 08:45 15:10 15:10 Sodium 139 Potassium 4.2 Chloride 106 Carbon Dioxide 24 BUN 20 H Creatinine 0.90 Estimated GFR > 60.0 BUN/Creatinine Ratio 22.2 H Glucose 124 H Calcium 9.1 Magnesium 1.9 Troponin I 0.044 H 0.030 Vitamin B12 Folate 01/21/19 15:10 Sodium Potassium Chloride Carbon Dioxide BUN Creatinine Estimated GFR BUN/Creatinine Ratio Glucose Calcium Magnesium Troponin I Vitamin B12 > 1000 H Folate > 20.0 H Assessment & Plan Assessment & Plan narrative: Ro is a 78-year-old female with a past medical history significant for hypertension and chronic alcohol use who presented for palpitations and was found to be in atrial fibrillation with RVR. 1. Atrial fibrillation with RVR, likely chronic, present on admission. Active. -Patient presented with palpitations and dyspnea on exertion and found to be in atrial fibrillation with RVR, heart rate 160s. -Patient likely has longstanding atrial fibrillation and etiology possibly secondary to chronic alcohol use vs sleep apnea vs uncontrolled hypertension. Left atrium severely dilated. -TSH normal at 2.94. -Switched to Xarelto 20 mg daily from Eliquis 5 mg twice daily for stroke prophylaxis as insurance will cover and is a $28 copay. -Echocardiogram as below. -Continue to monitor closely on telemetry. -Titrated off diltiazem gtt to metoprolol tartrate 50 mg every 6 hours with controlled rate. Switched to metoprolol succinate 200 mg daily. 2. Newly diagnosed systolic congestive heart failure, likely secondary to atrial fibrillation with RVR, present on admission. Active. -Likely from longstanding uncontrolled atrial fibrillation with RVR versus ischemic etiology. -BNP elevated 272 and chest x-ray interpreted by me demonstrated mild bilateral pulmonary edema and vascular congestion. -Echocardiogram demonstrated borderline dilated left ventricle with ejection fraction 40-45% and hypokinesis of inferior wall and lateral wall, severely dilated left atrium, mild to moderately dilated right atrium, moderate mitral regurgitation and a moderate left-sided pleural effusion. -Initial troponin normal at 0.033. Repeat mildly elevated 0.044 and trended back down. Discussed echo and trop with cardiology, Nicki Yang, who recommends if troponins are trending back down to perfrom a NM stress test to discern etiology of inferior and lateral wall hypokinesis. NPO for NM stress test today. 3. Hypertension, chronic, present on admission. Stable. -Continue metoprolol succinate 200 mg daily. 4. Alcohol use with macrocytosis, chronic, present on admission. Stable. -Patient drinks 3 glasses of wine a night. No history of withdrawal. -Discussed alcohol use and recommended cutting back. -B12 and folate levels high and over uppe limit of normal. -Will watch for withdrawal symptoms. Disposition: Patient likely to discharge in tomorrow depending upon rate control and stress test results. Quality VTE Deep Vein Thrombosis/Pulmonary Embolism Present on Admission: No
[2019-01-22 08:08] LABS: Add Manual Diff / Slide Review NO; Basophils Absolute Auto 100 /uL (0-100); Basophils Percent Auto 0.7 % (0-2); Eosinophils Absolute Auto 200 /uL (0-450); Hematocrit 39.8 % (36-46); Hemoglobin 13.4 g/dL (12.0-16.0); Lymphocytes Absolute Auto 1200 /uL (1100-4500); Lymphocytes Percent Auto 16.5 % (25-40); Mean Corpuscular HGB Conc 33.7 % (30-36); Mean Corpuscular Volume 100.8 fL (80-100); Monocytes Absolute Auto 700 /uL (0-900); Monocytes Percent Auto 9.6 % (3-14); Neutrophils Absolute Auto 5400 /uL (1500-7000); Neutrophils Percent Auto 71.2 % (50-75); Platelet Count 262 X10^3/uL (150-400); Red Blood Cell Count 3.95 X10^6/uL (4.0-5.2); Red Cell Distribution Width 12.9 % (11.6-14.8); White Blood Cell Count 7.5 X10^3/uL (4.5-11.0)
[2019-01-22] MEDS: APIXABAN 5 MG TABLET PO ×2 (08:12→22:12)
[2019-01-22] MEDS: FUROSEMIDE 20 MG TABLET PO (08:12)
[2019-01-22] MEDS: METOPROLOL ER 50 MG TABLET 200 MG PO (08:12)
[2019-01-22 08:16] LABS: BUN Creatinine Ratio 33.3 (6-22); Blood Urea Nitrogen 20 mg/dL (7-17); Calcium 9.4 mg/dL (8.4-10.2); Carbon Dioxide 27 mmol/L (22-32); Chloride 104 mmol/L (98-107); Estimated Glomerular Filt Rate > 60.0 mL/min (>60); Glucose 113 mg/dL (80-110); HEMOLYSIS 16 (0-50); Magnesium 1.9 mg/dL (1.6-2.3); Sodium 140 mmol/L (137-145)
--- NOTE | 2019-01-22 11:34 | CM.DPC ---
DCP Cont: [facility] ph: [phone] fax: [phone]. Fax confirmation scanned in. Called today for an update on the test claims they ran on the 2 scripts and spoke to Best who stated that both scripts have a $[address] Ornelas notified. Ondina Johnson, [employer]
--- NOTE | 2019-01-22 12:06 | PM.TREADMILL ---
Cardiac Stress Test Report Referral & Results Date Patient Seen: 01/22/19 Time Patient Seen: 12:07 Requesting provider: Shawna Ornelas Indication: AFib Rest ECG: Atrial fibrillation with poor ventricular control heart rate 117 Procedure Note: Today following both written and verbal informed consent the patient was exercised according to a standard John protocol patient went for a total of 2 minutes 5 seconds achieving a maximum heart rate of 150 maximum systolic blood pressure of 152. This is approximately 4.6 METS. Exercise was terminated at this point because of inability the patient to continue because of dyspnea upper body pain and heart rate target was met. Patient was also given Cardiolite through a previously started Hep-Lock IV by the nuclear equipment test engineer approximately 1 minute prior to the cessation of exercise. With exercise patient was quickly tachycardic with peak heart rate of 150 and less than 2 minutes or so. Patient's heart rate was still 115 at 3 minutes into recovery. Blood pressure davina slightly then dropped off immediately. No ST-T segment changes identified Functional aerobic impairment rated 35% on the sedentary scale Impression: No ECG evidence of ischemia Less than adequate ventricular rate control in setting of persistent atrial fibrillation, with activity any way. Please see perfusion imaging report as well, for further details regarding possible ischemia Please note: Actual ECG tracings can be found in the PACS system.
--- NOTE | 2019-01-22 12:09 | P.PCN_ITS ---
Cardiac Stress Test Report Referral & Results Date Patient Seen: 01/22/19 Time Patient Seen: 12:07 Requesting provider: Shawna Orneals Indication: AFib Rest ECG: Atrial fibrillation with poor ventricular control heart rate 117 Procedure Note: Today following both written and verbal informed consent the patient was exercised according to a standard John protocol patient went for a total of 2 minutes 5 seconds achieving a maximum heart rate of 150 maximum systolic blood pressure of 152. This is approximately 4.6 METS. Exercise was terminated at this point because of inability the patient to continue because of dyspnea upper body pain and heart rate target was met. Patient was also given Cardiolite through a previously started Hep-Lock IV by the accelerator technician approximately 1 minute prior to the cessation of exercise. With exercise patient was quickly tachycardic with peak heart rate of 150 and less than 2 minutes or so. Patient's heart rate was still 115 at 3 minutes into recovery. Blood pressure davina slightly then dropped off immediately. No ST-T segment changes identified Functional aerobic impairment rated 35% on the sedentary scale Impression: No ECG evidence of ischemia Less than adequate ventricular rate control in setting of persistent atrial fibrillation, with activity any way. Please see perfusion imaging report as well, for further details regarding possible ischemia Please note: Actual ECG tracings can be found in the PACS system.
--- NOTE | 2019-01-22 17:11 | DI.NM.S_ITS ---
DATE OF SERVICE: 01/20/2019 PROCEDURE: Exercise perfusion study. INDICATIONS: Persistent atrial fibrillation, CHF. RADIOPHARMACEUTICAL: 25.1 mCi technetium-99m Myoview IV was injected at stress. Please note, this is an exercise stress study only. CARDIAC STRESS: Patient underwent exercise perfusion study under the supervision of an attending staff. She walked on John protocol for a total of 2 minutes 05 seconds and achieved 104% of target heart rate with normal blood pressure response. Baseline rhythm was atrial fibrillation with fast ventricular rate. There was enhanced chronotropic response. Patient developed shortness of breath and fatigue. She couldn't walk more on treadmill. Baseline rhythm was atrial fibrillation with heart rate of about [address]-T changes. During stress, patient remained to have nonspecific ST-T changes. Patient remained in atrial fibrillation. RAW DATA: Breast shadow was seen. There is increased subdiaphragmatic activity. GATED STUDY: Stress LV ejection fraction about 38 % with global hypokinesis. Lung/heart ratio is 0.35. Stress LV end-diastolic volume 143 mL. PERFUSION STUDY: Stress supine and stress prone images were compared to each other. Stress supine images revealed small-sized mildly decreased perfusion of distal anterior wall and anterior apex which got resolved during prone images. Prone images revealed small -sized mildly decreased perfusion of basal inferior wall and basal inferolateral wall which was not seen during stress supine images. CONCLUSION: I'll call this study likely a normal myocardial perfusion study with evidence of breast tissue attenuation artifact as well as some shifting tissue attenuation artifact as stated above. No convincing ischemia infarction pattern. Patient has global hypokinesis. 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 Discussed the findings with Dr. Shawna Ornelas. Ro Bourgeois - KAVITHA/jyotsna/ doc#: [id number]/job#: [id number] dd: 01/22/2019 16:52:00 dt: 01/22/2019 17:00:00 DICTATING MD/COPIES TO: Kait Giraldo MD COPIES MNE: KATHRIN
--- NOTE | 2019-01-22 19:29 | PC.NURSE ---
luna note Ambulated pt 400 feet after dinner. Pt had minimal SOB, HR max 112. Denies chest pain.
[2019-01-23] VITALS (9 sets, daily range): BP systolic 116–143; BP diastolic 60–83; PULSE 80–94; RESP 16–20; TEMP 35.8–36.5; O2SAT 91–96
[2019-01-23 05:24] LABS: BUN Creatinine Ratio 32.9 (6-22); Blood Urea Nitrogen 23 mg/dL (7-17); Calcium 9.3 mg/dL (8.4-10.2); Carbon Dioxide 29 mmol/L (22-32); Chloride 104 mmol/L (98-107); Estimated Glomerular Filt Rate > 60.0 mL/min (>60); Glucose 103 mg/dL (80-110); HEMOLYSIS < 15 (0-50); Potassium 3.8 mmol/L (3.4-5.1); Sodium 140 mmol/L (137-145)
[2019-01-23] MEDS: RIVAROXABAN 10 MG TABLET 20 MG PO (08:28)
[2019-01-23] MEDS: METOPROLOL ER 50 MG TABLET 200 MG PO (08:29)
[2019-01-23] MEDS: FUROSEMIDE 40 MG TABLET PO (08:29)
[2019-01-23] MEDS: SODIUM CHLORIDE 0.9% FLUSH 10 ML IV (08:30)
[2019-01-23] MEDS: dilTIAZem CD 120 MG CAP PO (09:11)
--- NOTE | 2019-01-23 12:43 | PM.PN.1 ---
Subjective Date Patient Seen: 01/23/19 Interval history: Patient reports her breathing has improved significantly. She does note that she feels her palpitations today. She was found to be in rapid afib with a ventricular response rate of over 120. She denies in chest pain. She is able to ambulate without difficulty. Overall she feels significantly improved. Exam Vital Signs (past 8 hours): - 01/23/19 08:00 01/23/19 08:34 01/23/19 11:48 Temperature 97.6 F 97.4 F L Pulse Rate 91 H 91 H Respiratory Rate 16 20 Blood Pressure 116/79 120/71 Pulse Oximetry 92 92 93 Oxygen Delivery Method Room Air Oxygen Flow Rate 0 Narrative Exam Narrative: Pleasant female Lungs: clear to auscultation with occassional scattered crackles CV: tachycardic, irregularly, irregular, Nl Sl S2 2/6 OLIVER Abd: soft/ nontender/ non distended Ext: no edema Objective Labs Result Diagrams: 01/22/19 07:50 01/23/19 04:49 Labs: Laboratory Results - last 24 hr 01/23/19 04:49 Sodium 140 Potassium 3.8 Chloride 104 Carbon Dioxide 29 BUN 23 H Creatinine 0.70 Estimated GFR > 60.0 BUN/Creatinine Ratio 32.9 H Glucose 103 Calcium 9.3 Magnesium 2.0 Assessment & Plan (1) Congestive heart failure: Problem details: Patient has CHF with reduced ejection fraction, Echo revealed EF 40-45%, borderline dilated Left ventricual, hypokinesis of the inferior wall , severely dilated left atrium, mild to moderate dilated right atrium, moderate mitral regurgitation, present on admission. Patient has had excellent response to lasix. Will discontinue lasix for now. She is no longer hypoxic at rest or with activity Current visit: Yes Status: Acute (2) Pleural effusion, left: Problem details: Left pleural effusion, present on admission, likely secondary to CHF with reduced ejection fraction Current visit: Yes Status: Acute (3) Alcohol use: Problem details: History of chronic ETOH use, no evidence of withdrawal Current visit: Yes Status: Acute (4) Essential hypertension: Problem details: Chronic Current visit: Yes Status: Acute (5) Atrial fibrillation with rapid ventricular response: Problem details: Patient was started on metroprolol, but continues to have rapid rate. Her lasix was discontinued and she was started on low dose cardizem. Will follow rate closely and adjust medications accordingly. She is also on Xeralto. Current visit: Yes Status: Acute Assessment & Plan narrative: Stress test revealed non ischemic cardiomyopathy. Quality VTE Deep Vein Thrombosis/Pulmonary Embolism Present on Admission: No
--- NOTE | 2019-01-23 20:22 | PC.NURSE ---
2015 - Pt has been moving about her room, independently. Hr remains in the 80-90's range. Denies palpitations, lightheadedness or pain. Monitor. Call light in reach.
[2019-01-24 04:51] VITALS: BP 133/93; PULSE 92; RESP 20; TEMP 36; O2SAT 94
[2019-01-24 07:00] VITALS: O2SAT 96
--- NOTE | 2019-01-24 07:39 | P.DS_ITS ---
History of Present Illness Date Patient Seen: 01/24/19 Chief complaint: short of breath Narrative: This is a 78-year-old female who has had intermittent palpitations for the last 20 years. She insists that she has told her physician about them and that no testing or treatment was ever recommended. She admits that she has had hypertension but it has been ?controlled by diet and exercise. For the last week the palpitations have become more intense. They usually improve as the day goes on. Today was different because her sister and her niece were picking her up to drive up to visit her brother on [facility]. 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 On arrival she is found to have atrial fibrillation with rapid ventricular response up into the 168 range. Her chest x-ray appears to show mild pulmonary edema with significant cardiomegaly. She is on a Cardizem drip now with a heart rate back down into the 120s. Thyroid testing and echocardiogram will be needed. She has been started on anticoagul ation. She drinks 3 glasses of wine per night and has done that for many years. She insists that she has never had withdrawal symptoms when needing to stop drinking for what ever reason. Her medical history is quite abbreviated. She only takes ibuprofen and only intermittently. She lives alone in her house in [place]. Dr. Alicia Duarte is her primary care physician on [place]. Discharge Providers Date of admission: 01/20/19 15:30 Discharge Date: 01/24/19 Discharge provider: Amira Parker MD Summary Discharge Diagnosis: Paroxysmal Atrial Fibrillation with Rapid Ventricular Response, Acute, Present on admission Acute Decompensated Systolic Heart Failure, present on admission, Ejection Fraction 40-45% Hypertension, chronic Left Sided Pleura effusion, acute, present on admission, improved Hospital Course: The patient is a 78 y/o female with a history of hypertension and palpitations who presented to the hospital with rapid atrial fibrillation. She was also found to have Acute Systolic Heart Failure. The patient was placed on a cardizem drip, diuresed with lasix, and underwent Echocardiogram and Stress Testing. The results are as follows: Echo he patient was in atrial fibrillation with heart rates between 71-100 bpm during the exam. Borderline dilated left ventricle with ejection fraction 40-45%. Hypokinesis of inferior wall and lateral wall. Severely dilated left atrium. Mild to moderately dilated right atrium. Moderate mitral regurgitation. The right ventricular systolic pressure is estimated to be at least 36 mmHg based on an estimated right atrial pressure of 15 mm Hg. There is a moderate left-sided pleural effusion. Nuclear Medicine Study: I'll call this study likely a normal myocardial perfusion study with evidence of breast tissue attenuation artifact as well as some shifting tissue attenuation artifact as stated above. No convincing ischemia infarction pattern. Patient has global hypokinesis. 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 The patient had her medications adjusted to oral metoprolol. She was started on Xeralto. She had a mildly elevated troponin but stress testing confirmed no reversible ischemia. The patients breathing improved significantly. Her heart rate improved with the metoprolol but she continued to have episodes of rapid ventricular rate with ambulation to over 120 bpm. Cardizem was added to her regimen with improvement of her heart rate. The patient felt significantly improved and was deemed appropriate for discharge home. Exam Vital Signs (past 8 hours): - 01/23/19 23:40 01/24/19 04:51 Temperature 96.8 F L Pulse Rate 92 H Respiratory Rate 20 Blood Pressure 133/93 H Pulse Oximetry 96 94 Oxygen Delivery Method Room Air Oxygen Flow Rate 0 Narrative Exam Narrative: Pleasant elderly female Lungs: occassional basilar crackles CV: irregularly, irregular Nl Sl S2 Abd: soft/ non tender/ non distended Ext: no edema Objective Labs Result Diagrams: 01/22/19 07:50 01/24/19 08:20 Discharge Plan Discharge Plan Patient Disposition: Home Discharge comment: F/U with Dr.Victoria Duarte next week Discharge Med Rec/Prescriptions Prescriptions: New metoprolol succinate 50 mg Tablet Extended Release 24 Hr 200 mg PO DAILY Qty: 30 RF: 0 diltiazem HCl 120 mg Capsule,Extended Release 24hr 120 mg PO DAILY Qty: 30 RF: 0 Xarelto 10 mg Tablet 20 mg PO DAILYCC Qty: 30 RF: 0 lisinopril 5 mg tablet 5 mg PO DAILY Qty: 30 RF: 0 Continued vitamin B complex [B Complex-Vitamin B12] Tablet 1 tab PO DAILY RF: 0 cholecalciferol (vitamin D3) [Vitamin D3] 2,000 unit Capsule 2,000 unit PO DAILY RF: 0 Centrum Complete 18-400 mg-mcg Tablet 1 tab PO DAILY RF: 0 Provider Discharge Instructions Diet: Low-sodium and Low-cholesterol Activity: as tolerated Oxygen: not indicated Visit Report/Discharge Packet Instructions: DI for Atrial Fibrillation, Metoprolol, Diltiazem (By mouth), Lisinopril (By mouth), Rivaroxaban (By mouth) Visit Report Forms: Stroke Signs & Symptoms Discharge Data Attending Provider: Landon Morrow Admit Date/Time: 01/20/19 15:30 Discharges patient from system. Discharge Date/Time: 01/24/19 15:15 Quality VTE Deep Vein Thrombosis/Pulmonary Embolism Present on Admission: No
[2019-01-24] MEDS: METOPROLOL ER 50 MG TABLET 200 MG PO (07:47)
[2019-01-24] MEDS: RIVAROXABAN 10 MG TABLET 20 MG PO (07:47)
[2019-01-24] MEDS: dilTIAZem CD 120 MG CAP PO (07:47)
[2019-01-24 07:58] VITALS: BP 136/80; PULSE 62; RESP 20; TEMP 36.6; O2SAT 93
--- NOTE | 2019-01-24 08:50 | CM.DPC ---
DCP: continued: case received, EMR reviewed. Dr. Parker's d/c order for home and clinic followup with PCP is noted. Per prior DCPlanner's note pt's son will be picking her up at d/c (she lives in [place]). Will follow prn until pt leaves.
[2019-01-24 09:26] LABS: B Type Natriuretic Peptide 430 (<100)
[2019-01-24 09:39] LABS: Blood Urea Nitrogen 21 mg/dL (7-17); Calcium 9.5 mg/dL (8.4-10.2); Carbon Dioxide 29 mmol/L (22-32); Chloride 102 mmol/L (98-107); Estimated Glomerular Filt Rate > 60.0 mL/min (>60); Glucose 108 mg/dL (80-110); HEMOLYSIS < 15 (0-50); Potassium 3.9 mmol/L (3.4-5.1); Sodium 141 mmol/L (137-145)
[2019-01-24 11:03] VITALS: PULSE 96
--- NOTE | 2019-01-24 14:25 | PC.NURSE ---
Am shift Dr Parker into see Pt and d/c orders written, Pt will fill Rx locally and follow up with PCP this week. No Cp, no SOB, HR controlled with addition of digoxin. IV and tele removed by 1200 and Pt awaits ride.
--- NOTE | 2019-01-24 15:28 | PC.NURSE ---
1515- Patient discharged to private vehicle. Patient stable at time of discharge.
== END 2019-01-24 15:15 | disposition home or self-care (01) | DRG 308 ==
LOC: ED 15:01 → AC 15:31 → ICU 01-21 06:43
PROVIDERS: Internal Medicine; Admitting Provider Family Medicine; Emergency Provider Emergency Medicine; Visit Provider Family Medicine
DX: I48.91 Unspecified atrial fibrillation (principal); I50.21 Acute systolic (congestive) heart failure; I11.0 Hypertensive heart disease with heart failure
CPT/HCPCS: 36415; 36591; 71045; 78451; 80048; 80053; 82550; 82607; 82746; 83690; 83735; 83880; 84443; 84484; 85025; 85610; 85730; 87797; 93005; 93010; 93016; 93017; 93018; 93306; 94760; 96365; 96366; 96372; 96375; 99284; 99285; A9502; J1650; J1940